=== PATIENT | female | born 1955 | race Caucasian/White ===

== ENCOUNTER 2017-07-05 11:27 | Emergency (ER) | payer BC ==
[~2017-07-05] VITALS: Ht 160 cm; Wt 99.1 kg
[2017-07-05] MEDS ORDERED: SODIUM CHLORIDE 0.9% 1,000 ML IV ONE (12:01)
[2017-07-05] MEDS ORDERED: SODIUM CHLORIDE FLUSH 10ML SYR IVF ONE (12:30)
[2017-07-05 12:35] LABS: HEMATOCRIT 47.8 % (34.6-47.8); HEMOGLOBIN 16.6 g/dL (11.7-16.4); WHITE BLOOD COUNT 2.8 x10^3/uL (3.4-10)
[2017-07-05 12:49] LABS: ASPARTATE AMINO TRANSFERASE 14 U/L (15-37); BLOOD UREA NITROGEN 18 mg/dL (7-18)
[2017-07-05 12:54] LABS: IS PT STATUS REG ER OR PRE ER? YES
[2017-07-05] MEDS ORDERED: PIOG30TA3 PO (12:55)
[2017-07-05] MEDS ORDERED: LEVO88TA2 PO (12:55)
[2017-07-05] MEDS ORDERED: INSU100V5 SQ-INSULIN (12:55)
[2017-07-05] MEDS ORDERED: AZIT250T PO (12:55)
[2017-07-05] MEDS ORDERED: OMNIPAQUE 350 MG/ML, 100ML BOTTLE ONE (13:29)
[2017-07-05] MEDS ORDERED: CEFTRIAXONE PMX 1GM/50ML 50 ML IVPB ONE (14:00)
[2017-07-05] MEDS ORDERED: AZITHROMYCIN 500 MG in SODIUM CHLORIDE 0.9% 250 ML IVPB ONE (14:00)
[2017-07-05] MEDS ORDERED: CEFTRIAXONE PMX 1GM/50ML 50 ML ONE (14:24)
[2017-07-05 16:21] VITALS: BP 129/70
== END 2017-07-05 16:23 | disposition home or self-care (01) ==
LOC: ED 13:29
DX: J15.9 Unspecified bacterial pneumonia (principal); M54.42 Lumbago with sciatica, left side; I10 Essential (primary) hypertension; E11.9 Type 2 diabetes mellitus without complications; Z90.710 Acquired absence of both cervix and uterus
CPT/HCPCS: 36415; 71275; 80053; 84439; 84443; 84484; 85025; 93005; 93970; 96361; 96365; 96368; 99285; J0456; J0696; J7030; J7050; Q9967